=== PATIENT | female | born 2000 | race Caucasian/White ===

== ENCOUNTER 2021-08-25 02:17 | Emergency (ER) | payer OTHER ==
[2021-08-25 02:51] LABS: BASOPHIL 0.4 % (0-2); EOSINOPHIL 0.4 % (0-5); HCT 38.1 % (37.0-47.0); HGB 13.1 g/dl (12.5-16.0); LYMPHOCYTE 32.3 % (15-48); MCH 30.7 pg (25.0-31.0); MCHC 34.4 g/dL (32.0-36.0); MCV 89.2 fL (78.0-100.0); MONOCYTE 8.5 % (0-12); MPV 11.3 fL (6.0-9.5); NEUTROPHIL 58.2 % (41-80); NRBC 0; PLT 355 K/uL (150-400); RBC 4.27 M/uL (4.20-5.40); RDW 12.2 % (11.5-14.0); WBC 9.1 K/uL (4.0-10.5)
[2021-08-25 03:12] LABS: ALBUMIN 4.3 g/dL (3.4-5.0); BILIRUBIN - TOTAL 0.5 mg/dL (0.2-1.0); BUN/CREAT RATIO (CALC) 15.5 RATIO; CREATININE 0.71 mg/dL (0.51-0.95); GLOBULIN (CALCULATION) 3.8 g/dL; POTASSIUM 3.7 mmol/L (3.5-5.1); TOTAL PROTEIN 8.1 g/dL (6.4-8.2)
[2021-08-25 03:52] LABS: BILIRUBIN NEGATIVE (NEGATIVE); BLOOD 2+ Ery/uL (NEGATIVE); CLARITY CLEAR (CLEAR); COLOR YELLOW (YELLOW); GLUCOSE (U) NORMAL (NORMAL); LEUKOCYTES NEGATIVE Leu/uL (NEGATIVE); NITRITE NEGATIVE (NEGATIVE); PROTEIN NEGATIVE (NEGATIVE); SPECIFIC GRAVITY >=1.030 (1.001-1.030); UROBILINOGEN 0.2 mg/dL (0.2-1.0); pH 5.5 (5.0-9.0)
[2021-08-25 04:01] LABS: BACTERIA 1+
[2021-08-25] MEDS ORDERED: PHENERGAN25 M1 PO (05:51)
[2021-08-25] MEDS ORDERED: ZOFRAN4 M1 PO (05:51)
[2021-08-25] MEDS ORDERED: ONDANSETRON ODT4 MG PO (05:52)
== END 2021-08-25 06:05 | disposition home or self-care (01) ==
LOC: FER 02:17
PROVIDERS: Emergency Medicine
DX: R11.2 Nausea with vomiting, unspecified (principal); R10.30 Lower abdominal pain, unspecified
CPT/HCPCS: 36415; 80053; 81001; 83690; 85025; 87088; J1170; J1200; J2405; J2765; J7030; Q0169; Q9967

== ENCOUNTER 2022-03-04 05:23 | Emergency (ER) | payer OTHER ==
[~2022-03-04 05:23] MED LIST: ONDANSETRON ODT4 MG PO; PHENERGAN25 M1 PO; ZOFRAN4 M1 PO
[2022-03-04 06:28] LABS: BASOPHIL 0.5 % (0-2); EOSINOPHIL 0.2 % (0-5); HCT 35.8 % (37.0-47.0); HGB 12.3 g/dl (12.5-16.0); LYMPHOCYTE 8.2 % (15-48); MCH 30.4 pg (25.0-31.0); MCHC 34.4 g/dL (32.0-36.0); MCV 88.4 fL (78.0-100.0); MONOCYTE 6.2 % (0-12); MPV 11.7 fL (6.0-9.5); NEUTROPHIL 84.6 % (41-80); NRBC 0; PLT 235 K/uL (150-400); RBC 4.05 M/uL (4.20-5.40); RDW 12.1 % (11.5-14.0); WBC 9.3 K/uL (4.0-10.5)
[2022-03-04 06:37] LABS: ALBUMIN 4.1 g/dL (3.4-5.0); BILIRUBIN - TOTAL 0.4 mg/dL (0.2-1.0); BUN/CREAT RATIO (CALC) 14.9 RATIO; CREATININE 0.74 mg/dL (0.51-0.95); GLOBULIN (CALCULATION) 3.2 g/dL; POTASSIUM 3.9 mmol/L (3.5-5.1); TOTAL PROTEIN 7.3 g/dL (6.4-8.2)
[2022-03-04 06:45] LABS: BILIRUBIN 1+ mg/dL (NEGATIVE); BLOOD 1+ Ery/uL (NEGATIVE); CLARITY CLEAR (CLEAR); COLOR YELLOW (YELLOW); GLUCOSE (U) NORMAL (NORMAL); LEUKOCYTES TRACE Leu/uL (NEGATIVE); NITRITE NEGATIVE (NEGATIVE); PROTEIN NEGATIVE (NEGATIVE); SPECIFIC GRAVITY 1.025 (1.001-1.030)
[2022-03-04 06:49] LABS: BACTERIA TRACE; MUCOUS MODERATE; URINARY WBC RARE
[2022-03-04] MEDS ORDERED: CELEBREX **OUT100 MG PO (07:47)
== END 2022-03-04 08:13 | disposition home or self-care (01) ==
LOC: FER 05:23
PROVIDERS: Internal Medicine
DX: R07.89 Other chest pain (principal)
CPT/HCPCS: 36415; 71250; 80053; 81001; 83690; 84145; 85025; J1885; J2405; J2550; J7030